=== PATIENT | male | born 1995 | race American Indian/Alaskan Native ===

== ENCOUNTER 2018-04-05 16:31 | Emergency (ER) | payer MEDICAID ==
[2018-04-05 17:05] VITALS: BP 146/88
[2018-04-05 18:42] LABS: ACETAMINOPHEN 0 ug/mL (10-30)
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
[2018-04-05] MEDS ORDERED: Haloperidol Lactate 5 MG/ML SDV IM ONE (19:13)
[2018-04-05] MEDS ORDERED: Benztropine 1 MG Tab PO ONE (19:13)
== END 2018-04-05 20:00 ==
LOC: JD.ED 16:31
DX: R45.850 Homicidal ideations (principal); R45.851 Suicidal ideations
CPT/HCPCS: 36415; 80053; 80306; 84443; 85025; 99285; G0480